=== PATIENT | female | born 1945 | race Caucasian/White ===

== ENCOUNTER 2024-07-29 06:27 | Day surgery (SDC) | payer MEDICARE, BC, SELFPAY | END 2024-07-29 11:55 | disposition home or self-care (01) | LOC: GI 06:27 | PROVIDERS: ATTENDING PHYSICIAN Internal Medicine | DX: Z12.11 Encounter for screening for malignant neoplasm of colon (principal); K57.30 Diverticulosis of large intestine without perforation or abscess without bleeding; K62.1 Rectal polyp; K64.9 Unspecified hemorrhoids; Z86.0101 Personal history of adenomatous and serrated colon polyps | CPT/HCPCS: 45380; 88305 ==

== ENCOUNTER → 2024-09-26 15:44 | Outpatient (REF) | payer MEDICARE, BC, SELFPAY | LOC: MRI 3T 15:44 | PROVIDERS: ATTENDING PHYSICIAN Student in an Organized Health Care Education/Training Program; FAMILY PHYSICIAN Physician Assistant Medical | DX: M25.512 Pain in left shoulder (principal) | CPT/HCPCS: 73221 ==